=== PATIENT | female | born 1975 | race Caucasian/White ===

== ENCOUNTER 2021-05-25 14:58 | Emergency (ER) | payer OTHER, SELFPAY ==
[2021-05-25 14:59] VITALS: BP 143/89; PULSE 102; RESP 20; TEMP 36.8; BMI 35.9
--- NOTE | 2021-05-25 15:41 | EX.ED.DYSGE1 ---
HPI History of Present Illness Chief Complaint: Abscess Detail of Chief Complaint: Redness and swelling to left breast that she has had for 3 weeks Informant: patient Narrative Narrative: Patient presents to the emergency department complaint of redness and swelling to the left breast that started 3 weeks ago. Patient states that she saw the nurse practitioner for her [employer] today and was referred to Dr. Jennyfer Vázquez general surgeon for possible incision and drainage of suspected abscess. Patient was to see Dr. Thomas today however Dr. Lisa got called away apparently to an emergency and patient was advised to come to the emergency department. Patient denies any fevers or chills or sweats. Patient states that she has had similar abscess in the past usually they have opened up and drained on their own this 1 has not. Patient otherwise has no medical history. Patient is not diabetic. Prior similar symptoms: Yes PFSH PFS Medical History (Updated 05/25/21 @ 16:[address] Aníbal De Leon, DO) Tonsillectomy planned Home Medications omeprazole 20 mg PO DAILY 05/25/21 [History Last Taken Unknown] Allergy/AdvReac Type Severity Reaction Status Date / Time No Known Allergies Allergy Verified 05/25/21 15:42 Surgical History (Updated 05/25/21 @ 15:41 by Jess Riddle) H/O: Social History Smoking Status: Current every day smoker tobacco type: cigarettes ROS ROS ED Constitutional Constitutional ED: Reports systems reviewed and no addt'l complaints, except as documented; Denies body ache(s), change in weight or chills Eyes Eyes: Denies acute decrease in peripheral vision, change in vision, double vision or loss of vision ENT ENT ED: Reports none; Denies ear pain, lip swelling, loss taste/smell, neck pain, otalgia or sore throat Cardiovascular Cardiovascular: Reports none; Denies abdominal pain, chest pain with activity, leg edema, lightheadedness, palpitations, rapid heart rate or syncope Respiratory/Chest Respiratory/Chest: Reports none; Denies change in mental status, dry cough, dyspnea, hemoptysis, shortness of breath at rest or shortness of breath with exertion Gastrointestinal Gastrointestinal: Reports none; Denies abdominal pain, change in stool character, diarrhea, hematemesis, hematochezia, melena, rectal bleeding or vomiting Genitourinary Genitourinary ED: Reports none; Denies abdominal discomfort, anuria, dysuria, genital pain or polyuria Musculoskeletal Musculoskeletal: Reports none; Denies arthralgias, back pain, difficulty walking, extremity pain, muscle weakness or myalgias Integumentary Reports none, abscess, rash and other Details: Redness and swelling to left breast Neurologic Neurologic: Reports none; Denies abnormal gait, confusion, focal weakness, frequent falls, headache(s), loss of vision, numbness, paresthesias, radicular pain, vertigo or weakness Psychiatric Psychiatric: Reports systems reviewed and no addt'l complaints, except as documented and none; Denies behavioral changes, confusion, difficulty concentrating, hallucinations, suicidal ideation, tactile hallucinations or visual hallucinations Endocrine Endocrinology: Denies none, cold intolerance, excessive sweating, fatigue or heat intolerance Hematologic/Lymphatic Hematologic/Lymphatic: Reports none; Denies anemia, easy bleeding or easy bruising Allergic/Immunologic Allergic/Immunologic ED: Denies as per HPI, none, lip swelling, mouth swelling, throat swelling, tongue swelling or hives EXAM Physical Exam Const Vital Signs: 05/25/21 14:59 Temperature 98.2 F Temperature Source Temporal Pulse Rate 102 H Respiratory Rate 20 H Blood Pressure 143/89 H Blood Pressure Mean 107 Positive well nourished and well developed General Appearance ED: well developed and NAD HEENT Reports TM's clear and moist mucous membranes normocephalic and atraumatic; Negative for trauma or tenderness Tympanic Membrane ED: Yes TM's clear Eyes PERRL and EOMs intact bilaterally General Eye ED: Negative for pale conjunctiva or scleral icterus Neck no lymphadenopathy, supple and no JVD General: Negative for tenderness Chest Wall inspection of chest normal and palpation of chest normal Chest: Negative for tenderness Resp normal respiratory effort and clear to auscultation bilaterally Effort and Inspection: Negative for respiratory distress or pain with movement Auscultation: Negative for rhonchi, wheezes or diminished lung sounds Cardio regular rate, regular rhythm, S1 normal heart sound, S2 normal heart sound and no murmurs Peripheral Pulses: pulses 2+ throughout GI normal to inspection, nondistended, normoactive bowel sounds, soft to palpation, non-tender, non-distended and no masses Back/Spine no CVA tenderness and no thoracic nor lumbar tenderness Extremity normal to inspection General Extremety ED: Negative for edema General Extremity: Negative for edema Neuro oriented x3, CN's II-XII intact bilaterally, no sensory deficits noted and gait normal Sensorium / Orientation: awake, alert, oriented to person, oriented to place and oriented to time Motor Exam: strength 5/5 throughout and strength abnormal Psych mental status grossly normal Skin no rashes or lesions noted and no wounds General Skin Exam: other Patient has diffuse cellulitis involving the left breast with fluctuance just along the medial areola and medial breast. There is a small area measuring about 5 mm in diameter that appears necrotic. MDM MDM MDM Narrative Medical decision making narrative: Case initially discussed with Dr. Jennyfer Thomas who is not available to see the patient and I was asked to contact the surgeon on-call. I discussed case with Dr. Michelle Og who asked that we obtain an ultrasound of the breast and she will see patient in consultation. Patient was medicated with morphine and Zofran. Care of patient turned over to evening physician awaiting ultrasound results and final disposition and evaluation by general surgery. Patient started on clindamycin IV. Lab Data Labs: Laboratory Results - last 24 hr 05/25/21 05/25/21 05/25/21 15:50 15:50 15:50 WBC 12.4 H RBC 3.89 L Hgb 13.1 Hct 39.7 MCV 102.1 H MCH 33.7 H MCHC 33.0 RDW Std Deviation 47.5 H RDW Coeff of Julia 12.6 Plt Count 252 MPV 10.3 Immature Gran % (Auto) 0.500 Neut % (Auto) 73.0 H Lymph % (Auto) 16.3 L Trigg % (Auto) 7.6 Eos % (Auto) 2.1 Baso % (Auto) 0.5 Absolute Neuts (auto) 9.0 H Absolute Lymphs (auto) 2.01 Nucleated RBC % 0 Sodium 139 Potassium 3.4 L Chloride 107 Carbon Dioxide 29.0 Anion Gap 3 L BUN 9 Creatinine 0.76 Estim Creat Clear Calc 106.74 Est GFR (MDRD) Af Amer 105 Est GFR (MDRD) Non-Af 87 BUN/Creatinine Ratio 11.8 Glucose 113 H Lactic Acid 0.7 Calcium 10.9 H Discharge Plan Triage Chief Complaint: Abscess Other Complaint: Cellulitis ED Provider: Aníbal De Leon Dx/Rx/DC Orders Clinical Impression: Abscess of breast, left, Cellulitis of left breast Prescriptions: No Action omeprazole 20 mg Tablet,Delayed Release (Dr/Ec) 20 mg PO DAILY RF: 0 Primary Care Provider: Care Physician,No Primary Referrals: Care Physician,No Primary [Primary Care Provider] -
[2021-05-25] MEDS: 0.9% Normal Saline 1,000 ML 150 ML IV (16:00)
[2021-05-25 16:09] LABS: Absolute Lymphocyte Count 2.01 X10^3/uL (0.83-4.51); Basophil# 0.06 X10^3/uL; Basophil% 0.5 % (0-1); Eosinophil# 0.26 X10^3/uL; Eosinophils% 2.1 % (0-5); Hematocrit 39.7 % (37-47); Hemoglobin 13.1 g/dL (12.0-15.0); Lymphocyte # 2.01 X10^3/ul (0.83-4.51); Lymphocyte % 16.3 % (19-41); Mean Corpuscular Hgb 33.7 pg (27.0-32.0); Mean Corpuscular Volume 102.1 fL (81-99); Mean Platelet Vol. 10.3 fl (6.2-12.0); Monocyte# 0.94 X10^3/uL; Monocyte% 7.6 % (0-10); NRBC Flagged by Analyzer 0 % (0-5); Neutrophil # 9.02 X10^3/uL (2.7-7.7); Platelet Count 252 K/mm3 (150-450); RBC Distribution Width CV 12.6 % (11.6-14.6); RBC Distribution Width SD 47.5 fl (35.1-43.9); Red Blood Count 3.89 M/mm3 (4.2-5.4); White Blood Count 12.4 K/mm3 (4.4-11.0)
[2021-05-25 16:24] LABS: Anion Gap 3 (5-15); BUN 9 mg/dL (7-18); BUN/Creat Ratio 11.8 RATIO (10-20); Calcium,Total 10.9 mg/dL (8.5-10.1); Chloride 107 mmol/L (98-107); Creatinine, Serum 0.76 mg/dL (0.55-1.02); EST Glomerular Filtration Rate 87 mL/min (>60); Est Glom Filt Rate - Afr Amer 105 mL/min (>60); Estimated Creatinine Clearance 106.74 ml/min; Glucose 113 mg/dL (74-106); Potassium 3.4 mmol/L (3.5-5.1); Sodium Level 139 mmol/L (136-145)
--- NOTE | 2021-05-25 16:38 | US_ITS ---
STUDY: ULTRASOUND BREAST - LEFT REASON FOR EXAM: Female, 45 years old. Technologist Notes Other, Ultrasound needed per surgeon consult. Concern for abscess. Mammo not available at this time. Dr. Mckoy examined patient in room and offered aspiration, patient refused at this time. Other Info ABSCESS OF LT BREAST 3-4 WEEKS TECHNIQUE: Axial and longitudinal images of the LEFT breast were performed with a high resolution ultrasound transducer. # OF IMAGES: 26 COMPARISON: None. FINDINGS: LEFT Breast: The left breast was imaged from the 6 to 9 o''clock position which shows a large complex fluid collection/ abscess measuring 6.2 x 6.5 x 3.2 cm. No vascular flow is seen within the central aspects or wall of the lesion to suggest a cystic neoplasm. However, due to the size of this lesion definitive aspiration or excision and drainage should be performed with the contents into pathology for definitive diagnosis. In addition the patient should undergo diagnostic mammogram and follow-up ultrasound after resolution of the abscess. No solid masses are seen. In the subareolar region there are some mildly dilated debris-filled ducts without vascularity of (see image 20). US/Breast Limited Unilateral IMPRESSION: 1. The left breast was imaged from the 6 to 9 o''clock position which shows a large complex fluid collection/ abscess measuring 6.2 x 6.5 x 3.2 cm 2. Benign-appearing subareolar ductal ectasia ASSESSMENT CATEGORY: BIRADS Category 3: Probably Benign - Short-Interval Follow-up Suggested. A letter regarding these results will be sent to the patient by the facility within 30 days. Recommendations: BIRADS 3 letter should be generated and sent to the patient. In addition the patient should undergo diagnostic mammogram and follow-up ultrasound after resolution of the abscess. Electronically Signed: Jose Rafael Garcia MD at 19:18 EDT , Service support ,
[2021-05-25 16:40] LABS: Lactic Acid 0.7 mmol/L (0.4-1.9)
[2021-05-25] MEDS: Ondansetron 4 MG/2 ML Vial IV (16:56)
[2021-05-25] MEDS: Morphine 4 MG/ML Syringe IV (16:56)
== END 2021-05-25 18:16 | disposition home or self-care (01) ==
PROVIDERS: Emergency Medicine; Emergency Provider Emergency Medicine
DX: N61.1 Abscess of the breast and nipple (principal); F17.210 Nicotine dependence, cigarettes, uncomplicated
CPT/HCPCS: 76642; 80048; 83605; 85025; 87070; 87205; 96361; 96365; 96375; 99283; J7030; J2405